=== PATIENT | male | born 1995 | race Caucasian/White ===

== ENCOUNTER 2020-10-06 02:31 | Emergency (ER) | payer SELFPAY ==
[2020-10-06] MEDS ORDERED: HYDROCODONE/ACETAMINOPHEN 5/325MG TABLET PO ONE (03:30)
[2020-10-06] MEDS ORDERED: TETANUS, DIPHTHERIA, PERTUSSIS VAC/PF 0.5ML (>7YR OLD) IM ONE (03:30)
[2020-10-06] MEDS ORDERED: LIDOCAINE HCL/PF 1% 10 MG/ML 5ML VIAL IJ ONE (03:30)
[2020-10-06] MEDS ORDERED: BACITRACIN ZINC OINT UDPKT TOP ONE (03:30)
[2020-10-06 06:00] VITALS: BP 121/69
[2020-10-06] MEDS ORDERED: CEPHALEXIN 250MG CAPSULE PO SCH (06:15)
[2020-10-06] MEDS ORDERED: IBUP-2029 PO (06:19)
[2020-10-06] MEDS ORDERED: T3 PO (06:19)
[2020-10-06] MEDS ORDERED: CEPH500T MT (06:19)
== END 2020-10-06 06:52 | disposition home or self-care (01) ==
LOC: ER 02:31
DX: S61.213A Laceration without foreign body of left middle finger without damage to nail, initial encounter (principal); X58.XXXA Exposure to other specified factors, initial encounter; Y93.89 Activity, other specified; Y92.89 Other specified places as the place of occurrence of the external cause
CPT/HCPCS: 73130; 90471; 90715; 99283; J3490; Z7610